=== PATIENT | female | born 1960 | race Caucasian/White ===

== ENCOUNTER → 2016-12-25 | Outpatient (CLI) | payer OTHER ==
[~2016-12-25] MED LIST: ALAW0.02 OU; CLAR10CA3 PO; LEVE15SO PO; MAGN400C2 PO; PROT10TA PO
--- NOTE | 2016-12-25 13:42 | REP ---
DIGITAL SCREENING BILATERAL MAMMOGRAPHY WITH CAD: HISTORY: No breast complaints. History of a benign needle biopsy of the left breast. No available prior mammography. MAMMOGRAPHIC FINDINGS: There is a needle biopsy marker clip in a well circumscribed oval-shaped 1.3 cm nodule in the left breast superomedial quadrant. This is consistent with a history of a benign biopsy. The left breast is otherwise unremarkable. There are scattered fibroglandular elements bilaterally. In the inferomedial quadrant of the right breast there is also a well circumscribed nodule. This measures 0.8 cm in greatest diameter. The right breast is otherwise unremarkable. No worrisome skin change is seen. No microcalcification is seen. IMPRESSION: BIRADS category 0 incomplete breast imaging. There is a nodular density in the inferomedial quadrant of the right breast which merits further evaluation. Diagnostic right breast mammography and focused right breast sonography are recommended. BI-RADS/ACR category 0 mammogram, incomplete. Additional imaging and/or prior images are needed before a final assessment can be assigned. This mammogram was interpreted with the aid of an FDA-approved computer-aided detection system. The patient states she/he had a clinical breast exam in December 2016. The patient letter being requested is M0. Signed by Nolberto Hough MD 12/25/2016 03:17 P
--- NOTE | 2016-12-26 06:42 | REP ---
Clinical: Postmenopausal bleeding . Technique: Transabdominal pelvic ultrasound followed by transvaginal examination for better evaluation of the endometrium and adnexa with color Doppler evaluation of the ovaries. Findings: Bladder is unremarkable and measures 6.7 x 3.6 x 1.8 cm. Heterogeneous anteverted uterus measures 8.2 x 2.8 x 3.6 cm. The endometrial complex measures 4.3 mm thickness. There is suggestion for a 1.2 cm left lateral cervical fibroid. The left ovary is not identified. The right ovary measures 5.7 x 2.9 x 4.1 cm with 4.7 cm cyst and demonstrates satisfactory vascularity without evidence for torsion. No pelvic free fluid or adnexal mass lesion. Impression: 1. Heterogeneous uterus with possible 1.2 cm cervical fibroid 2. 4.7 cm simple right ovarian cyst. Signed by Ronal Banegas MD 12/26/2016 06:34 A
== END ==
LOC: M RAD 09:51
PROVIDERS: ATTEND Obstetrics & Gynecology
DX: N95.0 Postmenopausal bleeding (principal); Z12.31 Encounter for screening mammogram for malignant neoplasm of breast; N83.201 Unspecified ovarian cyst, right side

== ENCOUNTER → 2016-12-27 | Outpatient (CLI) | payer OTHER ==
--- NOTE | 2016-12-27 15:22 | REP ---
DIGITAL DIAGNOSTIC UNILATERAL RIGHT BREAST MAMMOGRAPHY WITH CAD, AND FOCUSED RIGHT BREAST SONOGRAPHY: HISTORY: Screening mammography from December 25, 2016 was BIRADS category 0 incomplete because of a nodular density inferiorly and medially. Diagnostic imaging was recommended. FINDINGS: Magnified focal spot compression CC, MLO and true MLO views were obtained. Rolled craniocaudad views were obtained as well. These views confirm the presence of a nodular density in the right medial mid breast at approximately the 3-o'clock position. No other suspicious mammographic finding. SONOGRAPHIC FINDINGS: The right breast is scanned from 1-o'clock position to the 4-o'clock position. At approximately 1-o'clock position by ultrasound, there is an oval-shaped , hypoechoic nodule with well-circumscribed margins casting acoustic shadowing. This is located 2.7 cm from the nipple. It is felt to correspond with the mammographic opacity in size and shape. No other significant sonographic findings. IMPRESSION: BIRADS category 4 suspicious right breast imaging. Hypoechoic shadowing nodule seen at 1-o'clock position by ultrasound. This is felt to correspond to the mammographic opacity. Recommend ultrasound guided needle biopsy and marker clip placement with post clip placement unilateral right breast mammogram. B-RADS/ACR category 4 mammogram. Suspicious abnormality - biopsy should be considered. Usually requires biopsy. This mammogram was interpreted with the aid of an FDA-approved computer-aided detection system. The patient states she/he had a clinical breast exam in December 2016. The patient letter being requested is M4. Signed by Nolberto Hough MD 12/27/2016 05:39 P
== END ==
LOC: M RAD 10:59
PROVIDERS: ATTEND Obstetrics & Gynecology
DX: Z12.31 Encounter for screening mammogram for malignant neoplasm of breast (principal); N63 Unspecified lump in breast

== ENCOUNTER → 2016-12-31 | Outpatient (CLI) | payer OTHER ==
--- NOTE | 2017-01-01 22:07 | ECGEPIP ---
Stationary ECG Study [facility] Test Date: 2016-12-31 Pat Name: ALISSA NICKERSON Department: Room: - Gender: F Guest Services Ambassador: CUAUHTEMOC : 1960 Requested By: Azar Austin Order Number: [id number] Reading MD: Chase Ahmadi Measurements Intervals [place] Rate: 88 P: 67 MS: 160 QRS: 39 QRSD: 102 T: 43 QT: 368 QTc: 447 Interpretive Statements SINUS RHYTHM NO PRIOR Electronically Signed On 01-01-2017 22:07:23 EDT by Chase Ahmadi
== END ==
LOC: M EKG 14:01
PROVIDERS: ATTEND Anesthesiology
DX: Z01.818 Encounter for other preprocedural examination (principal)

== ENCOUNTER → 2017-01-03 | Day surgery (SDC) | payer OTHER ==
[~2017-01-03] VITALS: Ht 172.7 cm; Wt 79.4 kg
[~2017-01-03] MED LIST changes: +CHLOROPROCAINE 2 % INJ PRES.FREE 20 ML VIAL (J2400) As Ordered ONE; +IBUPROFEN 600 MG TAB PO PRN; +KETOROLAC 60 MG/2 ML VIAL (J1885) As Ordered ONE; +LIDOCAINE 2% INJ 100 MG/5 ML SDV (FOR ANES.) As Ordered ONE; +LR 1,000 ML IV SCH; +MIDAZOLAM INJ 2 MG/2 ML VIAL (J2250) As Ordered ONE; +ONDANSETRON 4MG/2ML VIAL (J2405) As Ordered ONE; +ONDANSETRON 4MG/2ML VIAL (J2405) IV PRN; +PHENYLephrine HCL 500 MCG/5 ML (100MCG/ML) SYRINGE (J2370) As Ordered ONE; +PROPOFOL 200 MG/20 ML VIAL As Ordered ONE; +fentaNYL 100 MCG/2 ML INJECTION (J3010) IV PRN
[2017-01-03 10:25] VITALS: BP 130/70
--- NOTE | 2017-01-03 16:06 | RO ---
DATE OF PROCEDURE: 01/03/2017 PREOPERATIVE DIAGNOSIS: Postmenopausal bleeding and pain. POSTOPERATIVE DIAGNOSIS: Postmenopausal bleeding and pain. PROCEDURE: Dilation and curettage, hysteroscopy. SURGEON: Dr. Aurora Mae CRYPTOLOGIC TECHNICIAN TECHNICAL: ANESTHESIA: Spinal. DESCRIPTION OF PROCEDURE: Gregory was brought to the operating room where sufficient spinal anesthesia was induced, and she was prepped, draped and positioned in the usual sterile fashion. Initially, we then began to dilate the cervix, and we did initially have a little difficulty in the dilation, there was a little bit of stenosis at the internal cervical os and a small old blood clot was released as we dilated, following which there was no further difficulty and the hysteroscope as placed. We were able to visualize and empty endometrial cavity. There were normal ostia. The uterus was slightly counterclockwise rotated and leaning to the patient's left fairly significantly, but this left the right ostia superior as she was lying down, so the air bubbles collected there. But other than this twist and lean, which is simply a normal variant, there was absolutely no polyp, no deviation, nor change in the contour, nothing consistent with fibroid, nor significant lesion. There was no ulceration. There was no hypervascularity. There was simply nothing to sample with the MyoSure. We did an aggressive curettage, which returned very scant tissue consistent with the atrophic very benign appearance of the lining of the uterus. As a result of this, after aggressive curettage in an effort to get an adequate sample, the procedure was then ended. Estimated blood loss for the procedure was 5 mL or less. Fluid replacement was crystalloid. Complications: None. Condition and Disposition: Gregory tolerated the procedure well and was recovering in the recovery room in good condition.
== END | disposition home or self-care (01) ==
LOC: M SDC 06:27
PROVIDERS: ATTEND Obstetrics & Gynecology
DX: N95.0 Postmenopausal bleeding (principal); R10.2 Pelvic and perineal pain; K58.8 Other irritable bowel syndrome; F32.9 Major depressive disorder, single episode, unspecified; Z88.0 Allergy status to penicillin; Z88.2 Allergy status to sulfonamides
CPT/HCPCS: 58558; 88305; J1885; J2250; J2370; J2400; J2405

== ENCOUNTER → 2018-07-10 | Outpatient (REF) | payer OTHER | LOC: M LAB REF 12:59 | DX: N39.0 Urinary tract infection, site not specified (principal) ==

== ENCOUNTER → 2019-01-12 | Outpatient (CLI) | payer OTHER ==
[~2019-01-12] MED LIST changes: -CHLOROPROCAINE 2 % INJ PRES.FREE 20 ML VIAL (J2400) As Ordered ONE; -IBUPROFEN 600 MG TAB PO PRN; -KETOROLAC 60 MG/2 ML VIAL (J1885) As Ordered ONE; -LIDOCAINE 2% INJ 100 MG/5 ML SDV (FOR ANES.) As Ordered ONE; -LR 1,000 ML IV SCH; -MIDAZOLAM INJ 2 MG/2 ML VIAL (J2250) As Ordered ONE; -ONDANSETRON 4MG/2ML VIAL (J2405) As Ordered ONE; -ONDANSETRON 4MG/2ML VIAL (J2405) IV PRN; -PHENYLephrine HCL 500 MCG/5 ML (100MCG/ML) SYRINGE (J2370) As Ordered ONE; -PROPOFOL 200 MG/20 ML VIAL As Ordered ONE; -fentaNYL 100 MCG/2 ML INJECTION (J3010) IV PRN
--- NOTE | 2019-01-12 19:33 | REP ---
Clinical: Plantar pain. Technique: AP, lateral, bilateral oblique views right foot . Findings: The osseous structures and joint spaces are intact and normal. There is no evidence for acute fracture or dislocation. Surrounding soft tissues are unremarkable. No abnormal soft tissue calcifications. Plantar soft tissues appear normal. No heel spur. No subcutaneous emphysema or radiodense foreign body. Impression: Normal right foot radiographs. Electronically Signed by Ronal Banegas MD 01/12/2019 07:25 P
== END ==
LOC: M WUC 19:03
PROVIDERS: ATTEND Physician Assistant
DX: M79.671 Pain in right foot (principal)